=== PATIENT | male | born 1995 | race African-American/Black ===

== ENCOUNTER → 2018-07-17 | Outpatient (CLI) | payer OTHER, BC ==
--- NOTE | 2018-07-17 16:21 | Diagnostic Imaging Report ---
EXAMINATION: Magnetic resonance imaging of the right knee without intravenous contrast DATE: July 17, 2018. COMPARISON: None. INDICATION: 23-year-old male, basketball injury in May 2018 with persistent knee pain and swelling. TECHNIQUE: Multiplanar, multisequence non contrast enhanced MR imaging was accomplished. FINDINGS: MENISCI: There is signal in the body and posterior horn of the medial meniscus which can be normally seen and does not meet MRI criteria for tear. There is a small peripheral tear involving the body of the lateral meniscus which is perhaps best illustrated on sagittal PD fat saturated sequence image 25. LIGAMENTS AND TENDONS: The anterior and posterior cruciate ligaments are intact. There is a complete tear of the superficial component of the medial collateral ligament complex. The iliotibial band, mid third lateral capsular ligament, fibular collateral ligament, biceps femoris tendon and conjoined tendon are intact. The quadriceps tendon and patella ligament are intact. JOINT: The articular cartilage surfaces are intact. There is no knee joint effusion, prominent synovitis, or intra-articular body. BONE: There is a focal area of edema-like signal in the lateral femoral condyle without identified fracture line most consistent with a bone contusion. The additional bone marrow signal is unremarkable. BURSAE AND SOFT TISSUES: There is no Bakers cyst. IMPRESSION: 1. Complete tear of the superficial component of the medial collateral ligament complex. 2. Small tear involving the peripheral aspect of the body of the lateral meniscus which is vertically oriented. 3. Intact medial meniscus. 4. Intact anterior and posterior crucial ligaments. 5. Small focal bone contusion of the lateral femoral condyle. No acute fracture. 6. Intact articular cartilage. No knee joint effusion. Dictated by: Dictated on workstation # [id number]
== END ==
LOC: RAD 15:11
PROVIDERS: ATTEND Orthopaedic Surgery
DX: S83.241A Other tear of medial meniscus, current injury, right knee, initial encounter (principal); S70.11XA Contusion of right thigh, initial encounter; S83.411A Sprain of medial collateral ligament of right knee, initial encounter; Y93.67 Activity, basketball
CPT/HCPCS: 73721